=== PATIENT | male | born 1935 | race Caucasian/White ===

== ENCOUNTER 2019-04-13 13:36 | Inpatient (IN) | payer MEDICARE, OTHER ==
[~2019-04-13] VITALS: Ht 180.3 cm; Wt 68.4 kg
[2019-04-13 15:00] VITALS: BP 113/78
[2019-04-13] MEDS ORDERED: ACETAMINOPHEN 325 MG TABLET PO PRN (15:15)
[2019-04-13] MEDS ORDERED: DEXTROSE 50%-WATER 25 GM/50 ML SYRINGE IVP PRN (15:15)
[2019-04-13] MEDS ORDERED: MELATONIN 3 MG TABLET PO PRN (15:15)
[2019-04-13] MEDS: MetFORMIN HCL 500 MG TABLET PO SCH (17:04)
[2019-04-13 18:57] LABS: GLUCOMETER DEV NAME(LOC) 2WR.1C; GLUCOSE,POINT OF CARE 101 MG/DL (70-110)
[2019-04-13] MEDS ORDERED: PNEUMOCOCCAL VACCINE POLYVALENT 0.5 ML VIAL [PPSV23] IM ONE (19:00)
[2019-04-13] MEDS: DOCUSATE SODIUM 100 MG CAPSULE PO SCH (20:18)
[2019-04-13] MEDS: SENNA 187 MG TABLET PO SCH (20:18)
[2019-04-13] MEDS: ATORVASTATIN CALCIUM 40 MG TABLET PO SCH (20:18)
[2019-04-13] MEDS: INSULIN LISPRO 100 UNITS/ML SQ PRN (20:55)
[2019-04-13 22:17] LABS: GLUCOMETER DEV NAME(LOC) 2WR.1C; GLUCOSE,POINT OF CARE 245 MG/DL (70-110)
[2019-04-14] VITALS (7 sets, daily range): BP systolic 75–118; BP diastolic 46–73
[2019-04-14 06:16] LABS: GLUCOMETER DEV NAME(LOC) 2WR.1C; GLUCOSE,POINT OF CARE 145 MG/DL (70-110)
[2019-04-14] MEDS: MetFORMIN HCL 500 MG TABLET PO SCH ×2 (07:57→17:09)
[2019-04-14 07:58] LABS: BASOPHILS % (AUTO) 0.6 % (0.0-2.0); EOSINOPHILS % (AUTO) 2.3 % (1.0-6.0); HEMATOCRIT 44.1 % (41-53); HEMOGLOBIN 15.7 g/dL (13.5-17.5); LYMPHOCYTES # (AUTO) 2.9 K/uL (1.0-4.8); LYMPHOCYTES % (AUTO) 31.6 % (22.0-44.0); MEAN CORPUSCULAR HEMOGLOBIN 32.8 pg (26.0-34.0); MEAN CORPUSCULAR HGB CONC 35.5 G/dL (31.0-37.0); MEAN CORPUSCULAR VOLUME 92 fL (80-100); MONOCYTES # (AUTO) 0.9 K/uL (0.1-1.0); MONOCYTES % (AUTO) 9.5 % (2.0-9.0); NEUTROPHILS # (AUTO) 5.1 K/uL (1.8-7.7); PLATELET COUNT (AUTO) 229 K/uL (150-450); RED BLOOD CELL COUNT(AUTO) 4.77 MIL/uL (4.50-5.90); RED CELL DISTRIBUTION WIDTH 13.6 % (11.5-14.5)
[2019-04-14] MEDS: INSULIN LISPRO 100 UNITS/ML SQ PRN ×3 (07:59→21:17)
[2019-04-14] MEDS: LOSARTAN POTASSIUM 50 MG TABLET PO SCH (08:00)
[2019-04-14] MEDS: CLOPIDOGREL BISULFATE 75 MG TABLET PO SCH (08:00)
[2019-04-14] MEDS: HYDROCHLOROTHIAZIDE 25 MG TABLET PO SCH (08:01)
[2019-04-14] MEDS: DOCUSATE SODIUM 100 MG CAPSULE PO SCH ×2 (08:01→20:53)
[2019-04-14 08:22] LABS: ALBUMIN 3.4 g/dL (3.4-5.0); CALCIUM, TOTAL 8.8 mg/dL (8.8-10.5); CREATININE 1.21 mg/dL (0.60-1.30); POTASSIUM 3.8 mmol/L (3.5-5.1); TOTAL PROTEIN, SERUM 6.6 g/dL (6.4-8.2)
[2019-04-14] MEDS ORDERED: AmLODIPine BESYLATE 5 MG TABLET PO SCH (09:00)
[2019-04-14 12:47] LABS: GLUCOMETER DEV NAME(LOC) 2WR.2; GLUCOSE,POINT OF CARE 162 MG/DL (70-110)
[2019-04-14] MEDS ORDERED: SODIUM CHLORIDE 0.9% 500 ML IV ONE ×2 (16:30→17:30)
[2019-04-14 16:39] LABS: BASOPHILS % (AUTO) 0.8 % (0.0-2.0); EOSINOPHILS % (AUTO) 1.9 % (1.0-6.0); HEMATOCRIT 45.5 % (41-53); HEMOGLOBIN 15.6 g/dL (13.5-17.5); LYMPHOCYTES # (AUTO) 2.4 K/uL (1.0-4.8); LYMPHOCYTES % (AUTO) 27.1 % (22.0-44.0); MEAN CORPUSCULAR HEMOGLOBIN 31.9 pg (26.0-34.0); MEAN CORPUSCULAR HGB CONC 34.4 G/dL (31.0-37.0); MEAN CORPUSCULAR VOLUME 93 fL (80-100); MONOCYTES # (AUTO) 0.7 K/uL (0.1-1.0); MONOCYTES % (AUTO) 8.4 % (2.0-9.0); NEUTROPHILS # (AUTO) 5.5 K/uL (1.8-7.7); NEUTROPHILS % (AUTO) 61.8 % (40.0-70.0); PLATELET COUNT (AUTO) 248 K/uL (150-450); RED CELL DISTRIBUTION WIDTH 13.7 % (11.5-14.5)
[2019-04-14 16:50] LABS: CALCIUM, TOTAL 9.3 mg/dL (8.8-10.5); CREATININE 1.46 mg/dL (0.60-1.30); POTASSIUM 4.9 mmol/L (3.5-5.1)
[2019-04-14] MEDS: SENNA 187 MG TABLET PO SCH (20:53)
[2019-04-14] MEDS: ATORVASTATIN CALCIUM 40 MG TABLET PO SCH (20:53)
[2019-04-14 21:29] LABS: GLUCOMETER DEV NAME(LOC) 2WR.2; GLUCOSE,POINT OF CARE 187 MG/DL (70-110)
[2019-04-14 22:16] LABS: GLUCOMETER DEV NAME(LOC) 2WR.1C; GLUCOSE,POINT OF CARE 113 MG/DL (70-110)
[2019-04-14] MEDS: 0.9% SODIUM CHLORIDE 10 ML SYRINGE IVP SCH (23:53)
[2019-04-15] VITALS (7 sets, daily range): BP systolic 82–136; BP diastolic 49–87
[2019-04-15 06:24] LABS: GLUCOMETER DEV NAME(LOC) 2WR.1C; GLUCOSE,POINT OF CARE 134 MG/DL (70-110)
[2019-04-15] MEDS: DOCUSATE SODIUM 100 MG CAPSULE PO SCH ×2 (08:04→21:00)
[2019-04-15] MEDS: CLOPIDOGREL BISULFATE 75 MG TABLET PO SCH (08:04)
[2019-04-15] MEDS: MetFORMIN HCL 500 MG TABLET PO SCH ×2 (08:04→16:16)
[2019-04-15] MEDS: HYDROCHLOROTHIAZIDE 25 MG TABLET PO SCH (08:04)
[2019-04-15] MEDS: LOSARTAN POTASSIUM 50 MG TABLET PO SCH (08:05)
[2019-04-15] MEDS: 0.9% SODIUM CHLORIDE 10 ML SYRINGE IVP SCH ×2 (09:47→16:17)
[2019-04-15 12:19] LABS: GLUCOMETER DEV NAME(LOC) 2WR.2; GLUCOSE,POINT OF CARE 237 MG/DL (70-110)
[2019-04-15] MEDS: INSULIN LISPRO 100 UNITS/ML SQ PRN ×2 (12:56→17:42)
[2019-04-15 18:06] LABS: GLUCOMETER DEV NAME(LOC) 2WR.2; GLUCOSE,POINT OF CARE 142 MG/DL (70-110)
[2019-04-15] MEDS: SENNA 187 MG TABLET PO SCH (21:00)
[2019-04-15 22:03] LABS: GLUCOMETER DEV NAME(LOC) 2WR.2; GLUCOSE,POINT OF CARE 132 MG/DL (70-110)
[2019-04-15] MEDS: ATORVASTATIN CALCIUM 40 MG TABLET PO SCH (22:05)
[2019-04-16] MEDS: 0.9% SODIUM CHLORIDE 10 ML SYRINGE IVP SCH ×3 (01:17→16:57)
[2019-04-16 01:20] VITALS: BP 127/69
[2019-04-16 06:14] LABS: GLUCOMETER DEV NAME(LOC) 2WR.1C; GLUCOSE,POINT OF CARE 145 MG/DL (70-110)
[2019-04-16] MEDS: CLOPIDOGREL BISULFATE 75 MG TABLET PO SCH (08:39)
[2019-04-16] MEDS: AmLODIPine BESYLATE 2.5 MG TABLET PO SCH (08:39)
[2019-04-16] MEDS: MetFORMIN HCL 500 MG TABLET PO SCH (08:39)
[2019-04-16] MEDS: LOSARTAN POTASSIUM 50 MG TABLET PO SCH (08:39)
[2019-04-16] MEDS: DOCUSATE SODIUM 100 MG CAPSULE PO SCH ×2 (08:39→20:59)
[2019-04-16 08:45] VITALS: BP 120/73
[2019-04-16] MEDS: INSULIN LISPRO 100 UNITS/ML SQ PRN ×2 (08:47→17:45)
[2019-04-16 13:07] LABS: GLUCOMETER DEV NAME(LOC) 2WR.1C; GLUCOSE,POINT OF CARE 127 MG/DL (70-110)
[2019-04-16 15:15] VITALS: BP 102/62
[2019-04-16] MEDS: MetFORMIN HCL 850 MG TABLET PO SCH (17:22)
[2019-04-16 18:35] LABS: GLUCOMETER DEV NAME(LOC) 2WR.2; GLUCOSE,POINT OF CARE 173 MG/DL (70-110)
[2019-04-16] MEDS: ATORVASTATIN CALCIUM 40 MG TABLET PO SCH (20:59)
[2019-04-16] MEDS: SENNA 187 MG TABLET PO SCH (20:59)
[2019-04-16 21:50] LABS: GLUCOMETER DEV NAME(LOC) 2WR.1C; GLUCOSE,POINT OF CARE 104 MG/DL (70-110)
[2019-04-16] MEDS ORDERED: DOCU-275 PO (22:28)
[2019-04-16] MEDS ORDERED: METF-960 PO (22:28)
[2019-04-16] MEDS ORDERED: PRAV40TA4 PO (22:28)
[2019-04-16] MEDS ORDERED: ASPI-728 PO (22:28)
[2019-04-16] MEDS ORDERED: LOSA-30 PO (22:28)
[2019-04-16] MEDS ORDERED: CHOL100018 PO (22:28)
[2019-04-17 03:00] VITALS: BP 112/68
[2019-04-17] MEDS: 0.9% SODIUM CHLORIDE 10 ML SYRINGE IVP SCH ×4 (03:12→23:10)
[2019-04-17] MEDS: DOCUSATE SODIUM 283 MG/5 ML MINI-ENEMA PR SCH (05:56)
[2019-04-17 06:17] LABS: GLUCOMETER DEV NAME(LOC) 2WR.2; GLUCOSE,POINT OF CARE 141 MG/DL (70-110)
[2019-04-17 07:05] LABS: ANION GAP 10 mmol/L (8-16); CALCIUM, TOTAL 8.6 mg/dL (8.8-10.5); CARBON DIOXIDE 27 mmol/L (22-29); CHLORIDE 103 mmol/L (98-107); CREATINE KINASE, TOTAL ONLY 80 U/L (39-308); CREATININE 0.97 mg/dL (0.60-1.30); GLOMERULAR FILTR. RATE CALC > 60 mL/min (>60); GLUCOSE,RANDOM 151 mg/dL (70-110); POTASSIUM 3.8 mmol/L (3.5-5.1); SODIUM SERUM 140 mmol/L (136-145); UREA NITROGEN, BLOOD 30 mg/dL (7-18)
[2019-04-17 08:00] VITALS: BP 126/58
[2019-04-17] MEDS: CLOPIDOGREL BISULFATE 75 MG TABLET PO SCH (08:28)
[2019-04-17] MEDS: DOCUSATE SODIUM 100 MG CAPSULE PO SCH ×2 (08:29→20:53)
[2019-04-17] MEDS: MetFORMIN HCL 850 MG TABLET PO SCH ×2 (08:29→17:00)
[2019-04-17] MEDS: AmLODIPine BESYLATE 2.5 MG TABLET PO SCH ×2 (08:29→10:13)
[2019-04-17] MEDS: LOSARTAN POTASSIUM 50 MG TABLET PO SCH ×2 (08:29→10:13)
[2019-04-17] MEDS ORDERED: DOCUSATE SODIUM 283 MG/5 ML MINI-ENEMA PR SCH (09:00)
[2019-04-17] MEDS: INSULIN LISPRO 100 UNITS/ML SQ PRN ×2 (13:30→21:01)
[2019-04-17 13:38] LABS: GLUCOMETER DEV NAME(LOC) 2WR.1C; GLUCOSE,POINT OF CARE 152 MG/DL (70-110)
[2019-04-17 16:05] VITALS: BP 103/63
[2019-04-17 17:37] LABS: GLUCOMETER DEV NAME(LOC) 2WR.2; GLUCOSE,POINT OF CARE 123 MG/DL (70-110)
[2019-04-17] MEDS: SENNA 187 MG TABLET PO SCH (20:53)
[2019-04-17] MEDS: ATORVASTATIN CALCIUM 40 MG TABLET PO SCH (20:53)
[2019-04-17 21:25] LABS: GLUCOMETER DEV NAME(LOC) 2WR.2; GLUCOSE,POINT OF CARE 170 MG/DL (70-110)
[2019-04-18 03:00] VITALS: BP 114/64
[2019-04-18 05:53] LABS: GLUCOMETER DEV NAME(LOC) 2WR.1C; GLUCOSE,POINT OF CARE 127 MG/DL (70-110)
[2019-04-18] MEDS: DOCUSATE SODIUM 283 MG/5 ML MINI-ENEMA PR SCH (06:07)
[2019-04-18 07:20] VITALS: BP 121/74
[2019-04-18] MEDS: 0.9% SODIUM CHLORIDE 10 ML SYRINGE IVP SCH ×2 (08:00→16:00)
[2019-04-18] MEDS: AmLODIPine BESYLATE 2.5 MG TABLET PO SCH (08:46)
[2019-04-18] MEDS: CLOPIDOGREL BISULFATE 75 MG TABLET PO SCH (08:46)
[2019-04-18] MEDS: DOCUSATE SODIUM 100 MG CAPSULE PO SCH ×2 (08:46→20:43)
[2019-04-18] MEDS: MetFORMIN HCL 850 MG TABLET PO SCH ×2 (08:46→16:54)
[2019-04-18] MEDS: LOSARTAN POTASSIUM 50 MG TABLET PO SCH (08:46)
[2019-04-18] MEDS: INSULIN LISPRO 100 UNITS/ML SQ PRN (12:45)
[2019-04-18 16:26] LABS: GLUCOMETER DEV NAME(LOC) 2WR.1C; GLUCOSE,POINT OF CARE 147 MG/DL (70-110)
[2019-04-18 16:30] VITALS: BP 118/118
[2019-04-18 18:43] LABS: GLUCOMETER DEV NAME(LOC) 2WR.1C; GLUCOSE,POINT OF CARE 116 MG/DL (70-110)
[2019-04-18 20:42] VITALS: BP 118/67
[2019-04-18] MEDS: ATORVASTATIN CALCIUM 40 MG TABLET PO SCH (20:43)
[2019-04-18] MEDS: SENNA 187 MG TABLET PO SCH (20:43)
[2019-04-18 22:23] LABS: GLUCOMETER DEV NAME(LOC) 2WR.2; GLUCOSE,POINT OF CARE 125 MG/DL (70-110)
[2019-04-19] MEDS: DOCUSATE SODIUM 283 MG/5 ML MINI-ENEMA PR SCH (05:37)
[2019-04-19 05:39] LABS: GLUCOMETER DEV NAME(LOC) 2WR.2; GLUCOSE,POINT OF CARE 112 MG/DL (70-110)
[2019-04-19 05:53] VITALS: BP 154/89
[2019-04-19] MEDS: MetFORMIN HCL 850 MG TABLET PO SCH ×2 (08:33→17:46)
[2019-04-19] MEDS: LOSARTAN POTASSIUM 50 MG TABLET PO SCH (08:33)
[2019-04-19] MEDS: CLOPIDOGREL BISULFATE 75 MG TABLET PO SCH (08:33)
[2019-04-19] MEDS: AmLODIPine BESYLATE 2.5 MG TABLET PO SCH (08:33)
[2019-04-19] MEDS: DOCUSATE SODIUM 100 MG CAPSULE PO SCH ×2 (08:34→20:46)
[2019-04-19 08:39] VITALS: BP 128/72
[2019-04-19 15:30] VITALS: BP 127/71
[2019-04-19 17:10] LABS: GLUCOMETER DEV NAME(LOC) 2WR.2; GLUCOSE,POINT OF CARE 109 MG/DL (70-110)
[2019-04-19 18:44] LABS: GLUCOMETER DEV NAME(LOC) 2WR.2; GLUCOSE,POINT OF CARE 89 MG/DL (70-110)
[2019-04-19] MEDS: ATORVASTATIN CALCIUM 40 MG TABLET PO SCH (20:46)
[2019-04-19] MEDS: SENNA 187 MG TABLET PO SCH (20:46)
[2019-04-20 04:16] VITALS: BP 131/69
[2019-04-20] MEDS: DOCUSATE SODIUM 283 MG/5 ML MINI-ENEMA PR SCH (05:26)
[2019-04-20 05:39] LABS: GLUCOMETER DEV NAME(LOC) 2WR.1C; GLUCOSE,POINT OF CARE 102 MG/DL (70-110)
[2019-04-20 05:57] LABS: GLUCOMETER DEV NAME(LOC) 2WR.1C; GLUCOSE,POINT OF CARE 89 MG/DL (70-110)
[2019-04-20 09:00] VITALS: BP 140/62
[2019-04-20] MEDS: AmLODIPine BESYLATE 2.5 MG TABLET PO SCH (09:20)
[2019-04-20] MEDS: CLOPIDOGREL BISULFATE 75 MG TABLET PO SCH (09:20)
[2019-04-20] MEDS: MetFORMIN HCL 850 MG TABLET PO SCH ×2 (09:20→17:00)
[2019-04-20] MEDS: LOSARTAN POTASSIUM 50 MG TABLET PO SCH (09:21)
[2019-04-20] MEDS: DOCUSATE SODIUM 100 MG CAPSULE PO SCH ×2 (09:21→20:25)
[2019-04-20 15:51] VITALS: BP 121/68
[2019-04-20] MEDS: SENNA 187 MG TABLET PO SCH (20:25)
[2019-04-20] MEDS: ATORVASTATIN CALCIUM 40 MG TABLET PO SCH (20:25)
[2019-04-20 22:35] LABS: GLUCOMETER DEV NAME(LOC) 2WR.2; GLUCOSE,POINT OF CARE 99 MG/DL (70-110)
[2019-04-20 22:35] LABS: GLUCOMETER DEV NAME(LOC) 2WR.2; GLUCOSE,POINT OF CARE 145 MG/DL (70-110)
[2019-04-21] VITALS: BP 120/62
[2019-04-21 05:31] LABS: GLUCOMETER DEV NAME(LOC) 2WR.1C; GLUCOSE,POINT OF CARE 148 MG/DL (70-110)
[2019-04-21] MEDS: DOCUSATE SODIUM 283 MG/5 ML MINI-ENEMA PR SCH (05:38)
[2019-04-21 05:59] LABS: GLUCOMETER DEV NAME(LOC) 2WR.2; GLUCOSE,POINT OF CARE 141 MG/DL (70-110)
[2019-04-21 08:10] VITALS: BP 132/79
[2019-04-21] MEDS: MetFORMIN HCL 850 MG TABLET PO SCH ×2 (08:45→17:42)
[2019-04-21] MEDS: AmLODIPine BESYLATE 2.5 MG TABLET PO SCH (08:45)
[2019-04-21] MEDS: LOSARTAN POTASSIUM 50 MG TABLET PO SCH (08:45)
[2019-04-21] MEDS: CLOPIDOGREL BISULFATE 75 MG TABLET PO SCH (08:45)
[2019-04-21] MEDS: DOCUSATE SODIUM 100 MG CAPSULE PO SCH ×2 (08:54→21:00)
[2019-04-21] MEDS: INSULIN LISPRO 100 UNITS/ML SQ PRN ×3 (08:54→21:02)
[2019-04-21 15:30] VITALS: BP 109/68
[2019-04-21 18:43] LABS: GLUCOMETER DEV NAME(LOC) 2WR.1C; GLUCOSE,POINT OF CARE 88 MG/DL (70-110)
[2019-04-21] MEDS: SENNA 187 MG TABLET PO SCH (21:00)
[2019-04-21] MEDS: ATORVASTATIN CALCIUM 40 MG TABLET PO SCH (21:00)
[2019-04-21 21:03] LABS: GLUCOMETER DEV NAME(LOC) 2WR.2; GLUCOSE,POINT OF CARE 146 MG/DL (70-110)
[2019-04-21 21:47] LABS: GLUCOMETER DEV NAME(LOC) 2WR.2; GLUCOSE,POINT OF CARE 181 MG/DL (70-110)
[2019-04-22 03:00] VITALS: BP 134/79
[2019-04-22] MEDS: DOCUSATE SODIUM 283 MG/5 ML MINI-ENEMA PR SCH (05:50)
[2019-04-22 06:18] LABS: GLUCOMETER DEV NAME(LOC) 2WR.2; GLUCOSE,POINT OF CARE 117 MG/DL (70-110)
[2019-04-22 07:58] VITALS: BP 130/77
[2019-04-22] MEDS: DOCUSATE SODIUM 100 MG CAPSULE PO SCH ×2 (08:59→20:33)
[2019-04-22] MEDS: MetFORMIN HCL 850 MG TABLET PO SCH ×2 (08:59→17:48)
[2019-04-22] MEDS: LOSARTAN POTASSIUM 50 MG TABLET PO SCH (08:59)
[2019-04-22] MEDS: CLOPIDOGREL BISULFATE 75 MG TABLET PO SCH (08:59)
[2019-04-22] MEDS: AmLODIPine BESYLATE 2.5 MG TABLET PO SCH (08:59)
[2019-04-22 13:15] LABS: GLUCOMETER DEV NAME(LOC) 2WR.2; GLUCOSE,POINT OF CARE 138 MG/DL (70-110)
[2019-04-22 15:45] VITALS: BP 118/74
[2019-04-22 15:55] LABS: GLUCOMETER DEV NAME(LOC) 2WR.2; GLUCOSE,POINT OF CARE 107 MG/DL (70-110)
[2019-04-22] MEDS: SENNA 187 MG TABLET PO SCH (20:33)
[2019-04-22] MEDS: ATORVASTATIN CALCIUM 40 MG TABLET PO SCH (20:33)
[2019-04-22 23:48] LABS: GLUCOMETER DEV NAME(LOC) 2WR.1C; GLUCOSE,POINT OF CARE 135 MG/DL (70-110)
[2019-04-23] VITALS: BP 113/70
[2019-04-23] MEDS: DOCUSATE SODIUM 283 MG/5 ML MINI-ENEMA PR SCH (05:28)
[2019-04-23 06:34] LABS: GLUCOMETER DEV NAME(LOC) 2WR.1C; GLUCOSE,POINT OF CARE 112 MG/DL (70-110)
[2019-04-23 07:15] VITALS: BP 126/80
[2019-04-23] MEDS: DOCUSATE SODIUM 100 MG CAPSULE PO SCH ×2 (07:50→21:41)
[2019-04-23] MEDS: MetFORMIN HCL 850 MG TABLET PO SCH ×2 (07:50→17:18)
[2019-04-23] MEDS: AmLODIPine BESYLATE 2.5 MG TABLET PO SCH (07:50)
[2019-04-23] MEDS: CLOPIDOGREL BISULFATE 75 MG TABLET PO SCH (07:51)
[2019-04-23] MEDS: LOSARTAN POTASSIUM 50 MG TABLET PO SCH (07:51)
[2019-04-23] MEDS: INSULIN LISPRO 100 UNITS/ML SQ PRN (13:17)
[2019-04-23 15:49] VITALS: BP 127/74
[2019-04-23 18:02] LABS: GLUCOMETER DEV NAME(LOC) 2WR.1C; GLUCOSE,POINT OF CARE 144 MG/DL (70-110)
[2019-04-23 18:02] LABS: GLUCOMETER DEV NAME(LOC) 2WR.1C; GLUCOSE,POINT OF CARE 105 MG/DL (70-110)
[2019-04-23] MEDS: SENNA 187 MG TABLET PO SCH (21:37)
[2019-04-23] MEDS: ATORVASTATIN CALCIUM 40 MG TABLET PO SCH (21:41)
[2019-04-23 22:19] LABS: GLUCOMETER DEV NAME(LOC) 2WR.1C; GLUCOSE,POINT OF CARE 132 MG/DL (70-110)
[2019-04-24 00:45] VITALS: BP 133/73
[2019-04-24] MEDS: DOCUSATE SODIUM 283 MG/5 ML MINI-ENEMA PR SCH ×2 (06:10→06:37)
[2019-04-24 06:47] LABS: GLUCOMETER DEV NAME(LOC) 2WR.1C; GLUCOSE,POINT OF CARE 114 MG/DL (70-110)
[2019-04-24 07:10] VITALS: BP 103/49
[2019-04-24 08:07] VITALS: BP 121/79
[2019-04-24] MEDS: DOCUSATE SODIUM 100 MG CAPSULE PO SCH ×2 (08:08→20:45)
[2019-04-24] MEDS: CLOPIDOGREL BISULFATE 75 MG TABLET PO SCH (08:08)
[2019-04-24] MEDS: LOSARTAN POTASSIUM 50 MG TABLET PO SCH (08:08)
[2019-04-24] MEDS: MetFORMIN HCL 850 MG TABLET PO SCH ×2 (08:08→17:20)
[2019-04-24] MEDS: AmLODIPine BESYLATE 2.5 MG TABLET PO SCH (08:08)
[2019-04-24 12:27] LABS: GLUCOMETER DEV NAME(LOC) 2WR.2; GLUCOSE,POINT OF CARE 129 MG/DL (70-110)
[2019-04-24 15:28] VITALS: BP 120/63
[2019-04-24 18:14] LABS: GLUCOMETER DEV NAME(LOC) 2WR.2; GLUCOSE,POINT OF CARE 97 MG/DL (70-110)
[2019-04-24] MEDS: ATORVASTATIN CALCIUM 40 MG TABLET PO SCH (20:45)
[2019-04-24] MEDS: SENNA 187 MG TABLET PO SCH (20:45)
[2019-04-24] MEDS: INSULIN LISPRO 100 UNITS/ML SQ PRN (20:58)
[2019-04-24 22:18] LABS: GLUCOMETER DEV NAME(LOC) 2WR.2; GLUCOSE,POINT OF CARE 147 MG/DL (70-110)
[2019-04-25 01:01] VITALS: BP 115/64
[2019-04-25] MEDS: DOCUSATE SODIUM 283 MG/5 ML MINI-ENEMA PR SCH (05:21)
[2019-04-25 05:54] LABS: GLUCOMETER DEV NAME(LOC) 2WR.2; GLUCOSE,POINT OF CARE 108 MG/DL (70-110)
[2019-04-25 08:20] VITALS: BP 117/67
[2019-04-25] MEDS: DOCUSATE SODIUM 100 MG CAPSULE PO SCH (08:20)
[2019-04-25] MEDS: MetFORMIN HCL 850 MG TABLET PO SCH (08:20)
[2019-04-25] MEDS: AmLODIPine BESYLATE 2.5 MG TABLET PO SCH (08:20)
[2019-04-25] MEDS: LOSARTAN POTASSIUM 50 MG TABLET PO SCH (08:20)
[2019-04-25] MEDS: CLOPIDOGREL BISULFATE 75 MG TABLET PO SCH (08:20)
[2019-04-25] MEDS: INSULIN LISPRO 100 UNITS/ML SQ PRN (12:39)
[2019-04-25 13:00] LABS: GLUCOMETER DEV NAME(LOC) 2WR.1C; GLUCOSE,POINT OF CARE 149 MG/DL (70-110)
[2019-04-25 15:00] VITALS: BP 106/68
== END 2019-04-25 15:44 | DRG 64 ==
LOC: 2WR 13:55
PROVIDERS: ADMIT Physical Medicine & Rehabilitation; ATTEND Physical Medicine & Rehabilitation
DX: I63.9 Cerebral infarction, unspecified (principal); I61.8 Other nontraumatic intracerebral hemorrhage; R47.01 Aphasia; R41.0 Disorientation, unspecified; E11.9 Type 2 diabetes mellitus without complications; E78.5 Hyperlipidemia, unspecified; I10 Essential (primary) hypertension; K59.00 Constipation, unspecified; K21.9 Gastro-esophageal reflux disease without esophagitis; G89.29 Other chronic pain; M54.5 Low back pain; F03.90 Unspecified dementia, unspecified severity, without behavioral disturbance, psychotic disturbance, mood disturbance, and anxiety; H91.90 Unspecified hearing loss, unspecified ear; I95.1 Orthostatic hypotension; E86.0 Dehydration; M88.9 Osteitis deformans of unspecified bone; Z98.890 Other specified postprocedural states; Z85.820 Personal history of malignant melanoma of skin; Z87.891 Personal history of nicotine dependence; Z79.02 Long term (current) use of antithrombotics/antiplatelets; Z79.899 Other long term (current) drug therapy; R27.0 Ataxia, unspecified
CPT/HCPCS: 87081; 92507; 92508; 92523; 97110; 97112; 97116; 97150; 97162; 97167; 97530; 97535; 99366; J7040